=== PATIENT | male | born 1995 | race Caucasian/White ===

== ENCOUNTER 2016-07-31 04:58 | Day surgery (SDC) | payer BC ==
[2016-07-28 18:34] LABS: BASOPHILS 0.9 %; BASOPHILS ABSOLUTE 0.06 10/3/uL (0.0-0.16); EOSINOPHILS 5.5 %; EOSINOPHILS ABSOLUTE 0.35 10/3/uL (0.0-0.53); HEMATOCRIT 41.9 % (40.0-51.0); HEMOGLOBIN 14.3 g/dL (13.6-17.8); IMMATURE GRANULOCYTES 0.2 %; IMMATURE GRANULOCYTES ABSOLUTE 0.01 10/3/uL (0.0-0.11); LYMPHOCYTES 43.1 %; LYMPHOCYTES ABSOLUTE 2.74 10/3/uL (0.67-4.30); MEAN CORPUS HGB CONC 34.1 g/dL (32.0-36.0); MEAN CORPUSCULAR HEMOGLOB 32.6 pg (26.0-34.0); MEAN PLATELET VOLUME 11.3 fL (9.2-13.0); MONOCYTES ABSOLUTE 0.38 10/3/uL (0.21-1.20); NEUTROPHILS 44.3 %; NEUTROPHILS ABSOLUTE 2.82 10/3/uL (2.02-8.40); PLATELET COUNT 208 10/3/uL (150-400); RBC DISTRIBUTION WIDTH 12.5 % (12.0-16.0); RED CELL COUNT 4.38 10/6/uL (4.7-6.1); WHITE BLOOD CELLS 6.4 10/3/uL (4.5-10.5)
[2016-07-28 18:35] LABS: MANUAL DIFF NO %; MEAN CORPUSCULAR VOLUME 95.7 fL (80-100)
[2016-07-28 18:44] LABS: INTERNATIONAL NORMAL RATI 1.2 UNITS (-); PARTIAL THROMBO TIME 32.4 SEC (22.5-37.2); PROTIME (NOT ORD) 14.7 SEC (12.0-14.5)
[2016-07-28 18:45] LABS: BUN (BLOOD UREA NITROGEN) 11 MG/DL (6-23); CALCIUM, SERUM 8.9 MG/DL (8.5-10.4); CHLORIDE, SERUM 107 MMOL/L (96-112); CO2 (CARBON DIOXIDE) 29 MMOL/L (24-34); CREATININE 0.76 MG/DL (0.70-1.30); GFR AFRICAN AMERICAN 151 ML/MIN (>=60); GFR NON AFRICAN AMERICAN 130 ML/MIN (>=60); POTASSIUM, SERUM 3.5 MMOL/L (3.5-5.3); SODIUM, SERUM 142 MMOL/L (135-148)
[2016-07-28 18:46] LABS: GLUCOSE, SERUM 66 MG/DL (60-99)
--- NOTE | ~2016-07-31 | OP ---
Record Of Operation [facility] [address] [place]. 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 POSTOPERATIVE DIAGNOSIS: Nasal airway obstruction secondary to septal deviation and turbinate hypertrophy. PROCEDURES PERFORMED: Septoplasty and bilateral inferior turbinoplasty. 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 He was felt to benefit from surgical therapy and was scheduled for such. OPERATIVE PROCEDURE AND FINDINGS: After informed consent was obtained, the patient was brought to the operating room, and placed on the operating table in the supine position, at which point general endotracheal anesthesia was induced by the Anesthesia Service, and the bed was turned to 90 degrees toward the nuisance wildlife control operator. The nose was decongested with topical Afrin-soaked pledgets, and was injected with approximately 4 mL of 2% lidocaine and 1:100,000 epinephrine. A 15 blade scalpel was then used to expose the caudal edge of the cartilage in the left nares, and the submucoperichondrial flaps were elevated along the left side with a White elevator as well as with a Bermudez elevator. Next, approximately 2.5 cm anterior strut and 1.5 cm dorsal strut of cartilage were preserved. The bony cartilaginous junction was disarticulated, and the deviated portion of the nasal bone was removed from its position in the septum. Next, a small 2 mm rim of cartilage was trimmed inferiorly along the maxillary crest, and this allowed the cartilaginous septum free mobility. It was easily mobilized back to midline. A 4 mm chisel was then used to trim the nasal bone from the maxillary crest from its position in the floor of the nose. Mucoperichondrial flaps were replaced, and the septum was noted to return to midline at this point with patent nares bilaterally. At this point, a rigid suction submucous dissector was inserted into the head of the inferior turbinates, right side than left side, advanced to the posterior aspect of the turbinate, and the submucous resection was performed. The remainder of the turbinate was then medialized with a Woodruff septal displacer, and lateralized with the same instrument. Two silicone splints were placed, one in the right nares, one in the left nares, and a nasal mustache dressing was applied after closure of his anterior incisions with plain gut suture. The patient was turned back toward Anesthesia, aroused from anesthesia, and taken to the Postanesthesia Care Unit in satisfactory condition. COMPLICATIONS: None. ESTIMATED BLOOD LOSS: Approximately 20 mL. IV FLUIDS: Per Anesthesia. Record Of Operation [address] [place]. [address] NAME: RASHEL MCLAUGHLIN : 89 STATUS : REG [facility] PAT#: [id number] AGE: 21 ADM/REG DATE : 07/31/16 MR#: [id number] REPORT SERV DATE: 08/01/16 DICTATED BY: RAMANDEEP MUNOZ DATE: 08/01/16 REPORT STATUS : Draft TRANSCRIBED BY: ELIZABETH DATE: 08/01/16 KRISTI/ELIZABETH Ramandeep Munoz M.D. / [id number] CC: Ramandeep Munoz M.D.
[~2016-07-31 04:58] MED LIST: ABILIFY20 MG PO; CELEXA20 PO; FISH OIL PO; PROAIR HFA INH; PROZAC PO
== END 2016-07-31 23:59 | disposition home or self-care (01) ==
LOC: SDC 04:58
PROVIDERS: Otolaryngology
PROC: 09BM0ZZ Excision of Nasal Septum, Open Approach (ICD-10-PCS; principal; 2016-07-31 06:45)
DX: J34.2 Deviated nasal septum (principal); J98.8 Other specified respiratory disorders; J34.3 Hypertrophy of nasal turbinates; J45.909 Unspecified asthma, uncomplicated; F32.9 Major depressive disorder, single episode, unspecified; F25.9 Schizoaffective disorder, unspecified; Z91.013 Allergy to seafood
CPT/HCPCS: 80048; 85025; 85610; 85730; 88300; A9270-GY; J0690; J1170; J2250; J2405; J2710; J3010

== ENCOUNTER 2016-08-28 23:11 | Emergency (ER) | payer BC | END 2016-08-29 01:29 | disposition home or self-care (01) | LOC: ER 23:11 | DX: S06.0X9A Concussion with loss of consciousness of unspecified duration, initial encounter (principal); S00.93XA Contusion of unspecified part of head, initial encounter; Z91.013 Allergy to seafood; Z79.899 Other long term (current) drug therapy; W18.09XA Striking against other object with subsequent fall, initial encounter | CPT/HCPCS: 70450; 72125; 99284 ==